=== PATIENT | female | born 1960 | race Asian ===

== ENCOUNTER 2020-08-08 16:01 | Emergency (ER) | payer OTHER ==
[~2020-08-08] VITALS: Ht 157.5 cm; Wt 70.1 kg
--- NOTE | 2020-08-08 16:26 | NUR ---
PT CAME IN [place] LEFT FLANK PAIN THAT STARTED A FEW DAYS AGO. PT STATES HER PAIN HAS GOTTEN MUCH WORSE. PT PROVIDED A DARK URINE SAMPLE. BLANKET PROVIDED. AWAITING MD AT THIS TIME
[2020-08-08] MEDS ORDERED: KETOROLAC 30 MG/1 ML IVPush ONE (17:00)
[2020-08-08] MEDS ORDERED: ONDANSETRON 2MG/ML, 2ML IVPush ONE (17:00)
[2020-08-08] MEDS ORDERED: MORPHINE SULFATE 4 MG/ML, 1ML IVPush PRN (17:00)
[2020-08-08] MEDS ORDERED: SODIUM CHLORIDE FLUSH 10ML SYR IVF ONE (17:00)
[2020-08-08] MEDS ORDERED: MORPHINE SULFATE 4 MG/ML, 1ML ONE (17:02)
[2020-08-08] MEDS ORDERED: KETOROLAC 30 MG/1 ML ONE (17:02)
[2020-08-08] MEDS ORDERED: ONDANSETRON 2MG/ML, 2ML ONE (17:02)
--- NOTE | 2020-08-08 17:11 | NUR ---
PT MEDICATED PER MAR
[2020-08-08 17:23] LABS: BASOPHILS % (AUTO) 1 % (0-1); EOSINOPHILS % (AUTO) 1 % (1-7); LYMPHOCYTES % (AUTO) 9 % (22-44); MEAN CORPUSCULAR HEMOGLOBIN 31.5 pg (27.0-34.8); MEAN CORPUSCULAR HGB CONC 33.1 g/dL (32.4-35.8); MEAN PLATELET VOLUME 9.7 fL (7.4-10.4); MONOCYTES % (AUTO) 5 % (2-9); NEUTROPHILS % (AUTO) 85 % (42-75); PLATELET COUNT 268 x10^3/uL (130-400); RED BLOOD COUNT 4.59 x10^6/uL (3.82-5.3)
[2020-08-08 17:33] LABS: ANION GAP 10 mmol/L (5-15); CHLORIDE 102 mmol/L (98-107)
[2020-08-08 17:34] LABS: ALANINE AMINOTRANSFERASE 35 U/L (12-78); ALBUMIN 4.1 g/dL (3.4-5.0)
[2020-08-08 17:38] LABS: ALKALINE PHOSPHATASE 91 U/L (45-117); BILIRUBIN,TOTAL 0.7 mg/dL (0.2-1.0); TOTAL PROTEIN 8.4 g/dL (6.4-8.2)
[2020-08-08 17:41] LABS: MICROSCOPIC INDICATED
[2020-08-08 18:08] VITALS: BP 100/50
== END 2020-08-08 20:12 | disposition home or self-care (01) ==
LOC: ED 16:31
DX: N13.2 Hydronephrosis with renal and ureteral calculous obstruction (principal); I10 Essential (primary) hypertension; F17.210 Nicotine dependence, cigarettes, uncomplicated
CPT/HCPCS: 36415; 74176; 80053; 81001; 83690; 85025; 87086; 96374; 96375; 99284; J1885; J2270; J2405